=== PATIENT | female | born 1960 ===

== ENCOUNTER 2021-11-28 04:34 | Emergency (ER) | payer OTHER ==
[2021-11-28] MEDS ORDERED: diazePAM 5 MG TAB PO ONE (11:41)
--- NOTE | 2021-11-28 11:42 | Emergency Department Report ---
ED General Adult HPI - General Chief complaint: Pain General Stated complaint: ELEVATED GLUCOSE Time Seen by Provider: 11/28/21 10:31 Source: patient, family Mode of arrival: Ambulatory Limitations: No Limitations - History of Present Illness Initial comments: This is a 61-year-old female with past medical history that includes diabetes, hypertension, and anxiety who presents to the emergency department with any complaints including any nasal congestion, bilateral eye redness, elevated blood pressure, elevated blood sugar, and difficulty sleeping. - Related Data Previous Rx's Medication Instructions Recorded Last Taken Type diazePAM TAB [Valium] 2 mg PO TID PRN #6 tablet 11/28/21 Unknown Rx Allergies Allergy/AdvReac Type Severity Reaction Status Date / Time Sulfa (Sulfonamide Allergy Unknown Verified 11/28/21 04:45 Antibiotics) ED Review of Systems ROS: Stated complaint: ELEVATED GLUCOSE Other details as noted in HPI ED Past Medical Hx - Social History Smoking Status: Never Smoker Substance Use Type: None - Medications Home Medications: Home Medications Medication Instructions Recorded Confirmed Last Taken Type diazePAM TAB [Valium] 2 mg PO TID PRN #6 tablet 11/28/21 Unknown Rx ED Physical Exam - General Limitations: No Limitations ED Course Vital Signs 11/28/21 11/28/21 04:46 09:54 Temperature 97.9 F 97.9 F Pulse Rate 77 99 H Respiratory 20 16 Rate Blood Pressure 132/86 Blood Pressure 161/95 [Left] O2 Sat by Pulse 97 100 Oximetry Critical care attestation.: If time is entered above; I have spent that time in minutes in the direct care of this critically ill patient, excluding procedure time. ED Disposition Clinical Impression: Bruising Insomnia Qualifiers: Insomnia type: other insomnia Qualified Code(s): G47.09 - Other insomnia Hypertension Qualifiers: Hypertension type: unspecified Qualified Code(s): I10 - Essential (primary) hypertension Disposition: 01 HOME / SELF CARE / HOMELESS Is pt being admited?: No Does the pt Need Aspirin: No Condition: Stable Instructions: Hypertension (ED), Insomnia, Hypertension, Adult Prescriptions: diazePAM TAB [Valium] 2 mg PO TID PRN #6 tablet PRN Reason: Sleep Referrals: GARRETT MAC NP-C [Primary Care Provider] - 3-5 Days Time of Disposition: 12:36
[2021-11-28 13:05] VITALS: BP 138/88
== END 2021-11-28 13:05 | disposition home or self-care (01) ==
LOC: EDSEX → ED 04:34
DX: S00.12XA Contusion of left eyelid and periocular area, initial encounter (principal); S00.11XA Contusion of right eyelid and periocular area, initial encounter; I10 Essential (primary) hypertension; G47.00 Insomnia, unspecified; E11.9 Type 2 diabetes mellitus without complications; Z88.2 Allergy status to sulfonamides; Z79.899 Other long term (current) drug therapy; X58.XXXA Exposure to other specified factors, initial encounter; Y93.89 Activity, other specified; Y92.89 Other specified places as the place of occurrence of the external cause; Y99.8 Other external cause status
CPT/HCPCS: 82962; 99283